=== PATIENT | male | born 1985 | race Caucasian/White ===

== ENCOUNTER 2017-12-05 18:55 | Emergency (ER) | payer MEDICAID, SELFPAY ==
[2017-12-05 18:57] VITALS: BP 127/93; PULSE 115; RESP 18; TEMP 36.4; O2SAT 100; BMI 23.5
--- NOTE | 2017-12-05 19:10 | ED.VISSUMM ---
- ER Visit Summary Date of Service: 12/05/17 Chief Complaint: Nausea and vomiting History of Present Illness: The patient is a 32 M nausea and vomiting since yesterday. Too many to count. 2 episodes today. No abdominal pain. No diarrhea. Myalgias and sweats. States he is withdrawing from heroin last use was 2 days ago along with trying meth. He has been injecting heroin for the last 5 months almost daily. Prior to that was using oral Dilaudid. States has not had helped before. Would like to detox. Tobacco history. Denies alcohol. Denies any past medical history. Allergy to codeine. Surgical history right wrist navicular repair. Physical Examination: General: Alert and oriented ?3, no acute distress HEENT: Normocephalic, atraumatic. Moist mucosa membranes Neck: supple, nontender. Cardiovascular: Regular rate 108 and rhythm, no murmurs Respiratory: Normal breath sounds, symmetric, no distress Abdomen: Soft, nontender, nondistended Extremities: Nontender, no edema, pulses intact ?4 Neuro: no focal neurological deficits. Test Results: [] Emergency Department Course and Treatment: Patient cooperative, nausea vomiting, slightly tachycardic. He wants assistance for his heroin dependence. Workup initiated. Given IV fluids and Zofran for his nausea symptoms. Prior to results of all his lab work on recheck of the patient, he apparently eloped the department. Nursing overheard patient talk to his brother stating he will detox himself at home. Treatment Plan: [] Disposition: Eloped Impression: 1. Heroin dependence 2. Nausea and vomiting This note was generated with [employer] dictation software. It may contain incorrect words, spelling, and punctuation that were not noted in review of the chart prior to signing ED Disposition - Plan for ED Patient: Disposition: Against Medical Advice Chief Complaint: Substance Abuse Diagnosis: Heroin dependence, Nausea and vomiting Referrals: NOT,DEFINED [NON-STAFF] -
[2017-12-05] MEDS: Ondansetron 4 MG/2 ML Vial IV (19:39)
[2017-12-05] MEDS: 0.9% Normal Saline 1,000 ML 1000 ML IV (19:39)
[2017-12-05 19:40] LABS: Absolute Lymphocyte Count 2.77 X10^3/ul (0.83-4.51); Absolute Neutrophil Count 4.3 X10^3/uL (2.0-7.7); Basophil# 0.02 X10^3/uL; Basophil% 0.3 % (0-1); Differential Indicated SCAN CRITERIA MET; Eosinophil# 0.12 X10^3/uL; Eosinophils% 1.5 % (0-5); Hematocrit 43.4 % (40-54); Hemoglobin 14.7 g/dl (13.0-16.5); Lymphocyte # 2.77 X10^3/ul (4.0); Lymphocyte % 35.2 % (19-41); Mean Corp Hgb Conc 33.9 g/gl (32-36); Mean Corpuscular Hgb 30.1 pg (27.0-32.0); Mean Corpuscular Volume 88.8 fL (80-94); Mean Platelet Vol. 9.7 fl (6.2-12.0); Monocyte# 0.65 X10^3/uL; Monocyte% 8.3 % (0-10); Neutrophil % 54.6 % (47-70); POSITIVE COUNT NO; POSITIVE DIFFERENTIAL NO; POSITIVE MORPHOLOGY YES; Platelet Count 343 K/mm3 (150-450); RBC Distribution Width CV 13.2 % (11.6-14.6); RBC Distribution Width SD 42.8 fl (35.1-43.9); Red Blood Count 4.89 M/mm3 (4.6-6.2); White Blood Count 7.9 K/mm3 (4.4-11.0)
[2017-12-05 19:58] LABS: Alcohol, Blood (Medical)-Serum < 3.0 mg/dL
[2017-12-05 20:00] LABS: Anion Gap 10 (5-15); BUN 24 mg/dL (7-18); BUN/Creat Ratio 18.9 RATIO (10-20); Calcium,Total 8.9 mg/dL (8.5-10.1); Chloride 102 mmol/L (98-107); Creatinine, Serum 1.27 mg/dL (0.70-1.30); EST Glomerular Filtration Rate 70 mL/min (>60); Est Glom Filt Rate - Afr Amer 85 mL/min (>60); Estimated Creatinine Clearance 80.79 ml/min; Glucose 111 mg/dL (74-106); Potassium 3.4 mmol/L (3.5-5.1); Sodium Level 139 mmol/L (136-145)
[2017-12-05 20:33] LABS: Differential Comment SCANNED
[2017-12-05 21:13] VITALS: RESP 16; O2SAT 98
--- NOTE | 2017-12-05 21:48 | ED.RN ---
Went to PTs room to introduce myself and updated POC. PT was not in room, not in restrooms or outside. During handoff, Marta stated the PT was talking to his brother about leaving and completing detox by himself. 20# IV in trash can, gown on bed. Annetta Garcia RN aware. Dr. De León updated as well.
[2017-12-05 21:57] LABS: Amphetamine Urine VISTA POSITIVE (<1000 ng/mL); Barbiturate Urine VISTA NEGATIVE (< 200 ng/mL); Benzodiazepine Urine VISTA NEGATIVE (< 200 ng/mL); Cocaine Urine VISTA NEGATIVE (< 300 ng/mL); Ecstacy Urine VISTA POSITIVE (< 500 ng/mL); Methadone Urine VISTA NEGATIVE (< 300 ng/mL); PCP Urine VISTA NEGATIVE (< 25 ng/mL); THC Urine VISTA POSITIVE (< 50 ng/mL); Vista UDS pH Range 6
== END 2017-12-05 21:49 | disposition left against medical advice (07) ==
PROVIDERS: Emergency Provider Emergency Medicine
DX: F11.20 Opioid dependence, uncomplicated (principal); R11.2 Nausea with vomiting, unspecified; Z72.0 Tobacco use
CPT/HCPCS: 80048; 80307; 80320; 85025; 99282; J7030; A4216; G0480; J2405

== ENCOUNTER 2017-12-05 22:56 | Inpatient (IN) | payer MEDICAID, SELFPAY ==
[2017-12-05 22:57] VITALS: BP 138/84; PULSE 102; RESP 14; TEMP 36.7; O2SAT 98; BMI 25.8
--- NOTE | 2017-12-05 23:49 | ED.VISSUMM ---
- ER Visit Summary Date of Service: 12/05/17 Chief Complaint: Heroin dependence History of Present Illness: The patient is a 32 M patient returns to the ED after leaving earlier. History of heroin dependence almost daily use for the last 5 months. Last used 2 days ago. Also used meth. States THC use. Denies alcohol. States had nausea and vomiting earlier was treated with IV fluids and Zofran. That has subsided. States he was going to walk to his brother's house to try to detox at home, however he states he thought better therefore turned around to walk back. He denied any drug use when he left. No past medical history. Physical Examination: General: Alert and oriented ?3, mild sweats on forehead HEENT: Normocephalic, atraumatic. Moist mucosa membranes Neck: supple, nontender. Cardiovascular: Regular rate 102 and rhythm, no murmurs Respiratory: Normal breath sounds, symmetric, no distress Abdomen: Soft, nontender, nondistended Extremities: Nontender, no edema, pulses intact ?4 Neuro: no focal neurological deficits. Test Results: [] Emergency Department Course and Treatment: Patient had labs evaluated from earlier, tox screen noted amphetamines, opiates, THC. Alcohol is negative. Basic labs were stable. CIWA score obtain was a 20. Patient has concerns with withdrawal symptoms. Initially was going to discuss using tramadol in the ED, however he states he abused this in the past and he would like to try something else. I will discuss with hospitalist for their protocol. Patient will be started on Subutex when he gets to the medical floor. Treatment Plan: [] Disposition: Admission Impression: 1. Heroin dependence This note was generated with [employer] dictation software. It may contain incorrect words, spelling, and punctuation that were not noted in review of the chart prior to signing ED Disposition - Plan for ED Patient: Disposition: Acute Care Hospital [facility] Chief Complaint: Substance Abuse Diagnosis: Heroin dependence Referrals: Care Physician,No Primary [Primary Care Provider] -
--- NOTE | 2017-12-05 23:53 | ED.DCSUM_ITS ---
- ER Visit Summary Date of Service: 12/05/17 Chief Complaint: Heroin dependence History of Present Illness: The patient is a 32 M patient returns to the ED after leaving earlier. History of heroin dependence almost daily use for the last 5 months. Last used 2 days ago. Also used meth. States THC use. Denies alcohol. States had nausea and vomiting earlier was treated with IV fluids and Zofran. That has subsided. States he was going to walk to his brother's house to try to detox at home, however he states he thought better therefore turned around to walk back. He denied any drug use when he left. No past medical history. Physical Examination: General: Alert and oriented ?3, mild sweats on forehead HEENT: Normocephalic, atraumatic. Moist mucosa membranes Neck: supple, nontender. Cardiovascular: Regular rate 102 and rhythm, no murmurs Respiratory: Normal breath sounds, symmetric, no distress Abdomen: Soft, nontender, nondistended Extremities: Nontender, no edema, pulses intact ?4 Neuro: no focal neurological deficits. Test Results: [] Emergency Department Course and Treatment: Patient had labs evaluated from earlier, tox screen noted amphetamines, opiates, THC. Alcohol is negative. Basic labs were stable. CIWA score obtain was a 20. Patient has concerns with withdrawal symptoms. Initially was going to discuss using tramadol in the ED, however he states he abused this in the past and he would like to try something else. I will discuss with hospitalist for their protocol. Patient will be started on Subutex when he gets to the medical floor. Treatment Plan: [] Disposition: Admission Impression: 1. Heroin dependence This note was generated with [employer] dictation software. It may contain incorrect words, spelling, and punctuation that were not noted in review of the chart prior to signing ED Disposition - Plan for ED Patient: Disposition: Acute Care Hospital [facility] Chief Complaint: Substance Abuse Diagnosis: Heroin dependence Referrals: Care Physician,No Primary [Primary Care Provider] -
[2017-12-06] VITALS (8 sets, daily range): BP systolic 97–135; BP diastolic 49–73; PULSE 66–81; RESP 16–18; TEMP 36.5–36.8; O2SAT 100; BMI 23.4
--- NOTE | 2017-12-06 00:28 | PCM.HP.STD ---
Problem List (1) Polysubstance dependence Status: Acute (2) Withdrawal from opioids Status: Acute (3) Tobacco abuse Status: Acute History of Present Illness Date of Admission: 12/06/17 Chief Complaint: Withdrawal symptoms x 1-2 days. The patient is a 32 year old M with a significant history of heroine, marijuana and methamphetamine use who presents with 1-2 days of withdrawal. Patient reports that 2 days ago he began to have withdrawal symptoms of clamminess, achy joints, restless legs, post nasal drip. Associated with symptoms his lower abdominal pain. At emergency department his CIWA-B was 20. Polysubstance dependence and withdrawal. Patient is dependence on heroin, marijuana and methamphetamine. Review of ED labs confirmed blood levels of above. Opioid withdrawal protocol with buprenorphine, clonidine, Bentyl, hydroxyzine, methocarbamol and pramipexole. Tobacco abuse Patient was counseled. A nicotine patch ordered. Inpatient consult for smoking cessation. DVT prophylaxis Low risk Ambulate. Past Medical History Allergies aspirin [ASA] Allergy (Verified 12/05/17 22:59) Hives codeine Allergy (Verified 12/05/17 22:59) Chest tightness Surgical History: - - wrist surgery after breaking a bone Psychiatric History: - - Denies and history of depression ; anxiety; or any other mental health disease. Lives: With Family Smoking Status: Current every day smoker Tobacco Use: Cigarettes Alcohol: None Drugs: Heroin, Marijuana, - - Methamphetamine - *Family History Paternal History Items: - Maternal History Items: - - Drug use. He reported that his mother used to use methamphetamine. Review of Systems Constitutional: Denies: Chills, Fever, Weight Change HEENT: Reports: Sinus Drainage. Denies: Head Aches Cardiovascular: Denies: Chest Pain, Palpitations Respiratory: Denies: Cough, Shortness of breath at rest, Sputum production Gastrointestinal: Reports: Abdominal Pain, Nausea, Vomiting Genitourinary: Denies: Dysuria Musculoskeletal: Denies: Joint Pain, Joint Tenderness Skin: Denies: Rash, Wounds Neurological: Denies: Numbness, Tingling, Focal weakness Psychiatric: Denies: Anxiety, Depression, Homicidal Ideations, Suicidal Ideations Hematologic/ Lymphatic: Denies: Easy Bruising, Easy Bleeding VTE Information - Inpt Only VTE Present on Admission: No VTE Mechan Device Prophylaxis: None VTE Pharm Prophylaxis ordered?: No Reason prophylaxis not ordered:: Treatment Not Indicated - low risk Patient Problems: Active and Suspected Problems Heroin dependence (Acute) Polysubstance dependence (Acute) Withdrawal from opioids (Acute) Tobacco abuse (Acute) - Physical Exam General: Alert, Oriented x3, - - Patient thrashing in bed HEENT: Atraumatic, PERRLA, EOMI, Normocephalic Neck: Supple, No JVD, Negative Carotid Bruits Lungs: Clear to auscultation, Normal air movement Cardiovascular: Regular rate, No murmurs Abdomen: Bowel Sounds Present, Soft, Tender - mild Extremities: No edema, Capillary Refill Less than 3 Seconds Skin: No rashes, No breakdown Musculoskeletal: No Tenderness to Palpation of Joints or Extremities Neurological: Cranial nerves II-XII grossly intact Psych/Mental Status: Anxious Vital Signs Temp Pulse Resp BP Pulse Ox 98.1 F 102 H 14 138/84 H 98 12/05/17 22:57 12/05/17 22:57 12/05/17 22:57 12/05/17 22:57 12/05/17 22:57 Weight: 79.379 kg Body Mass Index (BMI) 25.8 Assessment/Plan All Active Problems Heroin dependence (Acute) Polysubstance dependence (Acute) Withdrawal from opioids (Acute) Tobacco abuse (Acute) The patient is a 32 year old M with a significant history of heroine, marijuana; methamphetamine and tobacco use who presents with 1-2 days of withdrawal. Polysubstance dependence and withdrawal. Patient is dependence on heroin, marijuana and methamphetamine. Review of ED labs confirmed blood levels of above. Opioid withdrawal protocol with buprenorphine, clonidine, Bentyl, hydroxyzine, methocarbamol and pramipexole. Tobacco abuse Patient was counseled. A nicotine patch ordered. Inpatient consult for smoking cessation. DVT prophylaxis Low risk Ambulate. Code Visit Inpatient E&M: 72028 Init Hosp L3
[2017-12-06] MEDS: cloNIDine HCl 0.1 MG Tablet PO ×4 (01:36→21:44)
[2017-12-06] MEDS: hydrOXYzine PAM 25 MG Capsule 50 MG PO ×3 (01:36→18:20)
[2017-12-06] MEDS: Pramipexole Di-HCl 0.25 MG Tablet PO ×2 (01:36→18:20)
[2017-12-06] MEDS: Methocarbamol 750 MG Tablet PO ×3 (01:36→21:44)
[2017-12-06] MEDS: Buprenorphine HCl 2 MG TAB.SUBL 4 MG SL (02:24)
[2017-12-06 05:28] LABS: Absolute Lymphocyte Count 2.94 X10^3/ul (0.83-4.51); Absolute Neutrophil Count 3.4 X10^3/uL (2.0-7.7); Basophil# 0.01 X10^3/uL; Basophil% 0.1 % (0-1); Eosinophil# 0.32 X10^3/uL; Eosinophils% 4.3 % (0-5); Hematocrit 40.2 % (40-54); Hemoglobin 13.4 g/dl (13.0-16.5); Lymphocyte # 2.94 X10^3/ul (4.0); Lymphocyte % 39.6 % (19-41); Mean Corp Hgb Conc 33.3 g/gl (32-36); Mean Corpuscular Hgb 29.5 pg (27.0-32.0); Mean Corpuscular Volume 88.4 fL (80-94); Mean Platelet Vol. 9.6 fl (6.2-12.0); Monocyte# 0.71 X10^3/uL; Monocyte% 9.6 % (0-10); Neutrophil # 3.44 X10^3/uL (2.7-7.7); Neutrophil % 46.3 % (47-70); POSITIVE COUNT NO; POSITIVE DIFFERENTIAL NO; POSITIVE MORPHOLOGY NO; Platelet Count 283 K/mm3 (150-450); RBC Distribution Width CV 13.4 % (11.6-14.6); RBC Distribution Width SD 42.9 fl (35.1-43.9); Red Blood Count 4.55 M/mm3 (4.6-6.2); White Blood Count 7.4 K/mm3 (4.4-11.0)
[2017-12-06 05:50] LABS: Anion Gap 8 (5-15); BUN 22 mg/dL (7-18); Calcium,Total 8.4 mg/dL (8.5-10.1); Chloride 106 mmol/L (98-107); Creatinine, Serum 0.92 mg/dL (0.70-1.30); EST Glomerular Filtration Rate 102 mL/min (>60); Est Glom Filt Rate - Afr Amer 123 mL/min (>60); Estimated Creatinine Clearance 111.52 ml/min; Glucose 94 mg/dL (74-106); Potassium 3.7 mmol/L (3.5-5.1); Sodium Level 140 mmol/L (136-145)
--- NOTE | 2017-12-06 09:51 | CASEMGMT ---
SW spoke w/[facility], they will speak to pt in regard to the [facility]. WILLIAMS Parry, POWER PLANT SUPERINTENDENT
[2017-12-06] MEDS: Dicyclomine 10 MG Capsule 20 MG PO ×2 (10:59→21:44)
[2017-12-06] MEDS: Buprenorphine HCl 2 MG TAB.SUBL SL ×2 (10:59→18:20)
[2017-12-06] MEDS: Ondansetron 8 MG Tablet PO ×2 (13:29→21:46)
[2017-12-06] MEDS: chlordiazePOXIDE 25 MG Capsule PO ×2 (14:59→21:52)
--- NOTE | 2017-12-06 15:38 | CHAPLAIN ---
Type of Pastoral Visit _x__ Initial Visit ___ Follow-up Visit ___ On-call Visit ___ General Patient Visit ___ Spiritual Assessment ___ Family Conference ___ Bereavement ___ Rapid Response ___ Code Blue ___ Other (describe below) Pastoral Care Referral From _x__ Patient ___ Family ___ Nurse ___ Physician ___ Jewel Supervisor ___ Costumed Character ___ Other (describe below) Sacrament/Intervention _x__ Active listening ___ Anointing ___ Islam ___ Bereavement ___ Communion _x__ Kacy exploration ___ _x__ Life review _x__ Prayer ___ Reconciliation ___ Sacrament of Sick _x__ Supportive presence ___ Wedding ___ Other (describe below) Pastoral Comments patient is talkative and speaks about his life, personal hurts, his mistakes and shame; pt is tearful at various times in telling his story; pt goal is to get into a rehab and then move away from the area so he can have a new start in life;
--- NOTE | 2017-12-06 18:09 | NURSING ---
reviewed and agree with charting by Tena Francisco, student nurse
[2017-12-07] VITALS (8 sets, daily range): BP systolic 97–131; BP diastolic 52–67; PULSE 62–86; RESP 16–18; TEMP 36.5–37.2; O2SAT 98–99
[2017-12-07] MEDS: Buprenorphine HCl 2 MG TAB.SUBL SL ×3 (02:42→18:41)
--- NOTE | 2017-12-07 10:08 | PCM.PN.HOSP ---
Patient Problems: Active and Suspected Problems Heroin dependence (Acute) Polysubstance dependence (Acute) Withdrawal from opioids (Acute) Tobacco abuse (Acute) Subjective: Feels better since starting the librium since he is now able to sleep Vitals/I&O's: Vital Signs Temp Pulse Resp BP Pulse Ox 98 F 62 16 97/52 L 100 12/07/17 06:00 12/07/17 06:00 12/07/17 06:00 12/07/17 06:00 12/06/17 16:00 Oxygen Delivery Method Room Air Weight: 154 lb Body Mass Index (BMI) 23.4 Intake and Output for Last 24 Hours 12/05/17 12/06/17 12/07/17 23:59 23:59 23:59 Intake Total 800 / 800 1100 / 1100 Output Total 0 / 0 Balance 800 / 800 1100 / 1100 General: Alert, Oriented x3, Cooperative, No apparent distress HEENT: Atraumatic, EOMI, Normocephalic Oral: Dry Mucosa Neck: Supple, No JVD Lungs: Clear to auscultation, Normal air movement, No rhonchi, No wheeze, No rales Cardiovascular: Regular rate, Regular Rhythm, Normal S1, Normal S2, No murmurs Abdomen: Soft, Non Tender, Non-Distended, No Hepato-splenomegaly Extremities: No edema, Capillary Refill Less than 3 Seconds Skin: No rashes, No breakdown Neurological: Neuro grossly intact, Sensory exam intact to light touch and pain Psych/Mental Status: Normal Affect, Appropriate Current Medications Buprenorphine HCl (Buprenorphine Hcl) 2 mg SL Q8H JAZZ; Taper Stop: 12/09/17 06:29 Last Admin: 12/07/17 02:42 Dose: 2 mg Chlordiazepoxide (Librium) 25 mg PO TID PRN PRN PRN Reason: AGITATION Last Admin: 12/06/17 21:52 Dose: 25 mg Clonidine (Catapres) 0.1 mg PO Q2H PRN PRN PRN Reason: Hot/Cold Sweats or Anxiety Last Admin: 12/06/17 21:44 Dose: 0.1 mg Dicyclomine HCl (Bentyl) 20 mg PO Q6H PRN PRN PRN Reason: Abdomnial Discomfort Last Admin: 12/06/17 21:44 Dose: 20 mg Hydroxyzine Pamoate (Vistaril Pamoate Capsule) 50 mg PO Q6H PRN PRN PRN Reason: Mild Anxiety Last Admin: 12/06/17 18:20 Dose: 50 mg Magnesium Hydroxide (Milk Of Magnesia) 30 ml PO DAILY PRN PRN PRN Reason: Constipation Methocarbamol (Methocarbamol) 750 mg PO Q6H PRN PRN PRN Reason: Muscle Aches Last Admin: 12/06/17 21:44 Dose: 750 mg Nicotine (Nicoderm Cq (Pbkc)) 21 mg TRANSDERM. DAILY JAZZ Last Admin: 12/06/17 11:01 Dose: 21 mg Nutritional Formula (Lactose Free) (Ensure Enlive) 120 ml PO 4X/DAY JAZZ Last Admin: 12/06/17 22:04 Dose: Not Given Ondansetron HCl (Zofran) 8 mg PO Q8H PRN PRN PRN Reason: NAUSEA/VOMITING Last Admin: 12/06/17 21:46 Dose: 8 mg Pramipexole Dihydrochloride (Mirapex) 0.25 mg PO Q12H PRN PRN PRN Reason: Restless Legs Last Admin: 12/06/17 18:20 Dose: 0.25 mg Medical Necessity - Tobacco Use Smoking Status: Current every day smoker Tobacco Use: Cigarettes Assessment/Plan All Active Problems Heroin dependence (Acute) Polysubstance dependence (Acute) Withdrawal from opioids (Acute) Tobacco abuse (Acute) 1. Polysubstance abuse - UDS positive for opiates, amphetamines and marijuana - Continue with the opiate withdrawal protocol - Added librium PRN - Will monitor 2. Tobacco abuse - Counseled on cessation - Nicotine patch DVT: Ambulate Diet: Regular Code Visit Inpatient E&M: 96852 Subs Hosp L2
[2017-12-07] MEDS: Pramipexole Di-HCl 0.25 MG Tablet PO ×2 (10:18→22:50)
[2017-12-07] MEDS: chlordiazePOXIDE 25 MG Capsule PO (15:04)
--- NOTE | 2017-12-07 15:46 | CHAPLAIN ---
Type of Pastoral Visit ___ Initial Visit _x__ Follow-up Visit ___ On-call Visit ___ General Patient Visit ___ Spiritual Assessment ___ Family Conference ___ Bereavement ___ Rapid Response ___ Code Blue ___ Other (describe below) Pastoral Care Referral From _x__ Patient ___ Family ___ Nurse ___ Physician ___ Production Service Manager ___ Cot Assembler ___ Other (describe below) Sacrament/Intervention _x__ Active listening ___ Anointing ___ Restorationist ___ Bereavement ___ Communion _x__ Kacy exploration ___ _x__ Life review _x__ Prayer _x__ Reconciliation ___ Sacrament of Sick _x__ Supportive presence ___ Wedding ___ Other (describe below) Pastoral Comments patient is very talkative and expresses life story and his feelings about himself; pt wants a new start in a new place; pt has relational pain and guilt to what drugs have caused him to do to other people he loves; pt wants to write letters (found paper to write on) to people he wants to talk to; pt expresses his hope that family will visit him; pt is open to scriptures and prayer; pt gives audible prayer for himself; pt said that his grandparents took him to [facility] when he was little and he remembers some of what he was taught; pt indicates desire to reconnect with his personal kacy in God
[2017-12-07] MEDS: hydrOXYzine PAM 25 MG Capsule 50 MG PO (16:35)
[2017-12-07] MEDS: Methocarbamol 750 MG Tablet PO (16:35)
[2017-12-07] MEDS: Glycerin/Hypromellose/PEG400 15 ml Bottle 2 DRP EACH EYE (18:41)
--- NOTE | 2017-12-07 22:40 | NURSING ---
Patient had made a comment that he's worried if he goes back to his mom's house until he gets into a rehab facility once he is discharged from here, he will fall back into the drugs. States during the day he would be home alone and would be pretty much free reign. States he would feel better if he stayed with his brother and that his brother would take care of him until he can get into rehab. Emotional support provided.
[2017-12-08 06:21] VITALS: BP 110/54; PULSE 73; RESP 16; TEMP 36.8
[2017-12-08 06:25] VITALS: O2SAT 97
[2017-12-08] MEDS: Buprenorphine HCl 2 MG TAB.SUBL SL ×2 (06:28→18:01)
[2017-12-08] MEDS: cloNIDine HCl 0.1 MG Tablet PO ×3 (06:28→22:06)
[2017-12-08 10:44] VITALS: BP 136/89; PULSE 87; RESP 18; TEMP 36.7
[2017-12-08] MEDS: hydrOXYzine PAM 25 MG Capsule 50 MG PO ×2 (10:54→22:07)
[2017-12-08] MEDS: Methocarbamol 750 MG Tablet PO ×2 (10:54→22:06)
[2017-12-08] MEDS: Pramipexole Di-HCl 0.25 MG Tablet PO (10:54)
--- NOTE | 2017-12-08 14:10 | PN_ITS ---
Patient Problems: Active and Suspected Problems Heroin dependence (Acute) Polysubstance dependence (Acute) Withdrawal from opioids (Acute) Tobacco abuse (Acute) Subjective: Doing well feels better, got into a rehab in [place], but is concerned about having enough suboxone to make the trip down. Objective: General: Alert, Oriented x3, Cooperative, No apparent distress HEENT: Atraumatic, EOMI, Normocephalic Oral: Dry Mucosa Neck: Supple, No JVD Lungs: Clear to auscultation, Normal air movement, No rhonchi, No wheeze, No rales Cardiovascular: Regular rate, Regular Rhythm, Normal S1, Normal S2, No murmurs Abdomen: Soft, Non Tender, Non-Distended, No Hepato-splenomegaly Extremities: No edema, Capillary Refill Less than 3 Seconds Skin: No rashes, No breakdown Vitals/I&O's: Vital Signs Temp Pulse Resp BP Pulse Ox 98.1 F 87 18 136/89 H 97 12/08/17 10:44 12/08/17 10:44 12/08/17 10:44 12/08/17 10:44 12/08/17 06:25 Oxygen Delivery Method Room Air Weight: 154 lb Body Mass Index (BMI) 23.4 Intake and Output for Last 24 Hours 12/06/17 12/07/17 12/08/17 23:59 23:59 23:59 Intake Total 800 / 800 1820 / 1820 600 / 600 Output Total 0 / 0 Balance 800 / 800 1820 / 1820 600 / 600 Current Medications Buprenorphine HCl (Buprenorphine Hcl) 2 mg SL Q12H JAZZ; Taper Stop: 12/09/17 06:29 Last Admin: 12/08/17 06:28 Dose: 2 mg Chlordiazepoxide (Librium) 25 mg PO TID PRN PRN PRN Reason: AGITATION Last Admin: 12/07/17 15:04 Dose: 25 mg Clonidine (Catapres) 0.1 mg PO Q2H PRN PRN PRN Reason: Hot/Cold Sweats or Anxiety Last Admin: 12/08/17 10:54 Dose: 0.1 mg Dicyclomine HCl (Bentyl) 20 mg PO Q6H PRN PRN PRN Reason: Abdomnial Discomfort Last Admin: 12/06/17 21:44 Dose: 20 mg Hydroxyzine Pamoate (Vistaril Pamoate Capsule) 50 mg PO Q6H PRN PRN PRN Reason: Mild Anxiety Last Admin: 12/08/17 10:54 Dose: 50 mg Magnesium Hydroxide (Milk Of Magnesia) 30 ml PO DAILY PRN PRN PRN Reason: Constipation Methocarbamol (Methocarbamol) 750 mg PO Q6H PRN PRN PRN Reason: Muscle Aches Last Admin: 12/08/17 10:54 Dose: 750 mg Nicotine (Nicoderm Cq (Pbkc)) 21 mg TRANSDERM. DAILY JAZZ Last Admin: 12/08/17 10:48 Dose: 21 mg Nutritional Formula (Lactose Free) (Ensure Enlive) 120 ml PO 4X/DAY JAZZ Last Admin: 12/08/17 13:35 Dose: Not Given Ondansetron HCl (Zofran) 8 mg PO Q8H PRN PRN PRN Reason: NAUSEA/VOMITING Last Admin: 12/06/17 21:46 Dose: 8 mg Pramipexole Dihydrochloride (Mirapex) 0.25 mg PO Q12H PRN PRN PRN Reason: Restless Legs Last Admin: 12/08/17 10:54 Dose: 0.25 mg Medical Necessity - Tobacco Use Smoking Status: Current every day smoker Tobacco Use: Cigarettes Assessment/Plan All Active Problems Heroin dependence (Acute) Polysubstance dependence (Acute) Withdrawal from opioids (Acute) Tobacco abuse (Acute) 1. Polysubstance abuse - UDS positive for opiates, amphetamines and marijuana - Continue with the opiate withdrawal protocol - Added librium PRN - Will monitor 2. Tobacco abuse - Counseled on cessation - Nicotine patch DVT: Ambulate Diet: Regular Code Visit Inpatient E&M: 10102 Subs Hosp L2
--- NOTE | 2017-12-08 15:02 | CHAPLAIN ---
Type of Pastoral Visit ___ Initial Visit _x__ Follow-up Visit ___ On-call Visit ___ General Patient Visit ___ Spiritual Assessment ___ Family Conference ___ Bereavement ___ Rapid Response ___ Code Blue ___ Other (describe below) Pastoral Care Referral From _x__ Patient ___ Family ___ Nurse ___ Physician ___ Qual Research Manager ___ Attending Anesthesiologist ___ Other (describe below) Sacrament/Intervention ___ Active listening ___ Anointing ___ Adventism ___ Bereavement ___ Communion ___ Kacy exploration ___ ___ Life review ___ Prayer ___ Reconciliation ___ Sacrament of Sick _x__ Supportive presence ___ Wedding ___ Other (describe below) Pastoral Comments brief follow up visit to patient; encouraged pt to continue with plans for recovery
[2017-12-08 16:00] VITALS: BP 108/60; PULSE 81; RESP 18; TEMP 36.7; O2SAT 100
[2017-12-08 22:00] VITALS: BP 112/66; PULSE 93; RESP 16; TEMP 36.4
[2017-12-09 05:08] VITALS: BP 92/49; PULSE 66; RESP 14; TEMP 36.6
[2017-12-09 08:47] VITALS: BP 121/69; PULSE 77; RESP 18; TEMP 36.7; O2SAT 100
--- NOTE | 2017-12-09 09:30 | DCINST_ITS ---
- Discharge Diagnoses Current Active Problems: Current Active and Chronic Problems Heroin dependence (Acute) Polysubstance dependence (Acute) Withdrawal from opioids (Acute) Tobacco abuse (Acute) You will use the following diet at home:: No restrictions Your food should be the consistency of: Regular Your liquids should be the consistency of: Regular/Thin Discharge Activity: Return to Normal Activity Call your doctor if you observe: Shortness of breath, Dizziness, Increased palpitations (irregular heartbeat) Allergies/Adverse Reactions: Allergies aspirin [ASA] Allergy (Verified 12/05/17 22:59) Hives codeine Allergy (Verified 12/05/17 22:59) Chest tightness Primary Care Physician: Care Physician,No Primary [Primary Care Provider] - Test Results: Test results from this visit will be discussed in further detail at your follow- up appointment, if applicable.
--- NOTE | 2017-12-09 09:39 | DS.PCM_ITS ---
Discharge Date and Diagnosis - Problem List Patient Problems: Active and Suspected Problems Heroin dependence (Acute) Polysubstance dependence (Acute) Withdrawal from opioids (Acute) Tobacco abuse (Acute) Date of Admission: 12/06/17 Date of Discharge: 12/09/17 - Primary Discharge Diagnosis Active and Suspected Problems Heroin dependence (Acute) Polysubstance dependence (Acute) Withdrawal from opioids (Acute) Tobacco abuse (Acute) Hospital Course and Treatment Imaging Results: None Consults: None Operations: None Procedures: None Summary of Care Provided: HPI: The patient is a 32 year old M with a significant history of heroine, marijuana and methamphetamine use who presents with 1-2 days of withdrawal. Patient reports that 2 days ago he began to have withdrawal symptoms of clamminess, achy joints, restless legs, post nasal drip. Associated with symptoms his lower abdominal pain. At emergency department his CIWA-B was 20. Vital Signs - 24 hr Temp Pulse Resp BP Pulse Ox 12/09/17 08:47 98.0 F 77 18 121/69 H 100 12/09/17 05:08 97.8 F 66 14 92/49 L 12/08/17 22:00 97.6 F L 93 16 112/66 12/08/17 16:00 98.0 F 81 18 108/60 100 12/08/17 10:44 98.1 F 87 18 136/89 H General: Alert, Oriented x3, Cooperative, No apparent distress HEENT: Atraumatic, EOMI, Normocephalic Oral: Dry Mucosa Neck: Supple, No JVD Lungs: Clear to auscultation, Normal air movement, No rhonchi, No wheeze, No rales Cardiovascular: Regular rate, Regular Rhythm, Normal S1, Normal S2, No murmurs Abdomen: Soft, Non Tender, Non-Distended, No Hepato-splenomegaly Extremities: No edema, Capillary Refill Less than 3 Seconds Skin: No rashes, No breakdown Hospital Course: 1. Heroin addiction/Polysubstance abuse/[facility] - He tolerated the opiate withdrawal protocol very well. I did have to had librium PRN which helped him sleep. He is going to a rehab in [place] and was curious about having enough suboxone to get him down there. We will contact [facility] to see what the protocol is, my BENIGNO does not allow to dispense Suboxone. In the meantime he will be discharged and he is going to live with his brother until he gets to [place]. His brother is not an addict, so hopefully it is a stable enough environment for him not to relapse. Discharge Activity: Return to Normal Activity Call your doctor if you observe: Shortness of breath, Dizziness, Increased palpitations (irregular heartbeat) Primary Care Physician: Care Physician,No Primary [Primary Care Provider] - Disposition: Home Minutes spent on discharge:: 35 Patient Condition:: Good Medical Necessity - Tobacco Use Smoking Status: Current every day smoker Tobacco Use: Cigarettes Meaningful Use Info Meaningful Use Diagnoses (Choose all that apply): None applicable Code Visit Inpatient E&M: 86002 Disch Hosp
[2017-12-09 09:54] VITALS: BP 121/69; PULSE 77; RESP 18; TEMP 36.7
[2017-12-09 12:25] VITALS: BP 121/69; PULSE 77; RESP 18; TEMP 36.7; O2SAT 100
== END 2017-12-09 12:26 | disposition home or self-care (01) | DRG 435 ==
LOC: ED 23:55 → MS2 12-06 00:22
PROVIDERS: Admitting Provider Hospitalist; Emergency Provider Emergency Medicine; Visit Provider Family Medicine
DX: F11.23 Opioid dependence with withdrawal (principal); F17.210 Nicotine dependence, cigarettes, uncomplicated; F19.10 Other psychoactive substance abuse, uncomplicated
CPT/HCPCS: 36415; 80048; 80307; 80320; 85025; 96374; 97802; 99281; 99282; J7030; A4216; G0480; J2405